=== PATIENT | female | born 1960 | race African-American/Black ===

== ENCOUNTER 2021-09-29 20:50 | Emergency (ER) | payer OTHER ==
[~2021-09-29] VITALS: Ht 162.6 cm; Wt 96.0 kg
[~2021-09-29 20:50] MED LIST: ASPI-785; DIABETIC PILL; NORVASC; TERB250T51; [UNRECOGNIZED DRUG - CODE]
[2021-09-29] MEDS ORDERED: IBUPROFEN 800MG TABLET PO ONE (23:00)
[2021-09-30] MEDS ORDERED: IBUP-2030 MT (00:38)
[2021-09-30 01:00] VITALS: BP 131/59
== END 2021-09-30 01:19 | disposition home or self-care (01) ==
LOC: ER 20:50
DX: S00.03XA Contusion of scalp, initial encounter (principal); S49.82XA Other specified injuries of left shoulder and upper arm, initial encounter; E11.9 Type 2 diabetes mellitus without complications; E78.00 Pure hypercholesterolemia, unspecified; I10 Essential (primary) hypertension; W01.0XXA Fall on same level from slipping, tripping and stumbling without subsequent striking against object, initial encounter; Y93.9 Activity, unspecified; Y92.9 Unspecified place or not applicable; Z79.82 Long term (current) use of aspirin
CPT/HCPCS: 73030; 73060; 99284; A4565